=== PATIENT | male | born 1965 | race African-American/Black ===

== ENCOUNTER 2019-06-05 09:23 | Inpatient (IN) | payer OTHER ==
[2019-06-05 10:56] VITALS: BMI 23.7
--- NOTE | 2019-06-05 12:33 | HP ---
CIWA Score Nausea/Vomitin Muscle Tremors: 2 Anxiety: 2 Agitation: 3 Paroxysmal Sweats: 2 Orientation: 0-Oriented Tacttile Disturbances: 1-Very Mild Itch/Numbness Auditory Disturbances: 0-None Visual Disturbances: 0-None Headache: 2-Mild CIWA-Ar Total Score: 14 - Admission Criteria OASAS Guidelines: Admission for Medically Managed Detox: Requires at least one of the followin. CIWA greater than 12 2. Seizures within the past 24 hours 3. Delirium tremens within the past 24 hours 4. Hallucinations within the past 24 hours 5. Acute intervention needed for co occurring medical disorder 6. Acute intervention needed for co occurring psychiatric disorder 7. Severe withdrawal that cannot be handled at a lower level of care (continued vomiting, continued diarrhea, abnormal vital signs) requiring intravenous medication and/or fluids 8. Admission ROS S - [facility] Chief Complaint: i am here to stop drinking alcohol Allergies/Adverse Reactions: Allergies Allergy/AdvReac Type Severity Reaction Status Date / Time No Known Allergies Allergy Verified 06/05/19 10:42 History of Present Illness: this 53 years old male with alcohol dependence,seeking detox,withdrawal symptom, last admission [facility] in 2010, history of hypertension,type 2 dm, hiv since 1997 denied seizure syncope weight loss nicotine dependence 10 cigarette longest sobriety 10 years plan for out patient program after detox non hodgkin's lymphoma since 1997 on chemotherapy ,remission tachcardia,cadomyopathy Exam Limitations: No Limitations - Ebola screening Have you traveled outside of the country in the last 21 days: No (N) Have you had contact with anyone from an Ebola affected area: No - Review of Systems Constitutional: Loss of Appetite, Malaise, Night Sweats, Changes in sleep, Weakness EENT: reports: Nose Congestion Respiratory: reports: No Symptoms reported Cardiac: reports: No Symptoms Reported GI: reports: Nausea, Poor Appetite, Abdominal cramping : reports: No Symptoms Reported Musculoskeletal: reports: Back Pain, Muscle Pain Integumentary: reports: Dryness Neuro: reports: Headache, Tremors Endocrine: reports: No Symptoms Reported Hematology: reports: No Symptoms Reported, Other (hiv) Psychiatric: reports: No Sypmtoms Reported, Judgement Intact, Mood/Affect Appropiate, Orientated x3 Other Systems: Reviewed and Negative Patient History - Patient Medical History Hx Anemia: No Hx Asthma: No Hx Chronic Obstructive Pulmonary Disease (COPD): No Hx Cancer: No Hx Cardiac Disorders: No Hx Congestive Heart Failure: No Hx Hypertension: Yes (on med) Hx Hypercholesterolemia: No Hx Pacemaker: No HX Cerebrovascular Accident: No Hx Seizures: No Hx Dementia: No Hx Diabetes: Yes (type2 dm) Hx Gastrointestinal Disorders: No Hx Liver Disease: No Hx Genitourinary Disorders: No Hx Sexually Transmitted Disorders: No Hx Renal Disease (ESRD): No Hx Thyroid Disease: No Hx Human Immunodeficiency Virus (HIV): Yes (since 1997) Hx Hepatitis C: No Hx Depression: No Hx Suicide Attempt: No Hx Bipolar Disorder: No Hx Schizophrenia: No Other Medical History: no sucidal,no homicidal,non hodgekin's lymphoma - Patient Surgical History Other Surgical History: portacath right chest wall and removal of portacath - PPD History Previous Implant?: Yes Documented Results: Positive w/o proof PPD to be Administered?: No - Smoking Cessation Smoking history: Current every day smoker Have you smoked in the past 12 months: Yes Aproximately how many cigarettes per day: 10 Cigars Per Day: 0 Hx Chewing Tobacco Use: No Initiated information on smoking cessation: Yes 'Breaking Loose' booklet given: 06/05/19 - Substance & Tx. History Hx Alcohol Use: Yes Hx Substance Use: No Substance Use Type: Alcohol Hx Substance Use Treatment: Yes (2010) - Substances abused Alcohol Substance route: Oral Frequency: Daily Amount used: 2 PINTS OF VODKA Age of first use: 9 Date of last use: 06/05/19 Admission Physical Exam [facility] - Vital Signs Vital Signs: Vital Signs - 24 hr 06/05/19 10:34 Temperature 98.8 F Pulse Rate 103 H Respiratory 20 Rate Blood Pressure 185/112 H - Physical General Appearance: Yes: Moderate Distress, Tremorous, Irritable, Sweating, Anxious HEENTM: Yes: Normal ENT Inspection, QUITA, Pharynx Normal Respiratory: Yes: Lungs Clear, Normal Breath Sounds, No Respiratory Distress Neck: Yes: Within Normal Limits, Supple, Trachea in good position Breast: Yes: Within Normal Limits Cardiology: Yes: Within Normal Limits, Regular Rhythm, Regular Rate, S1, S2 Abdominal: Yes: Within Normal Limits, Normal Bowel Sounds, Non Tender, Flat, Soft Genitourinary: Yes: Within Normal Limits Back: Yes: Muscle Spasm Musculoskeletal: Yes: Back pain, Muscle Pain Extremities: Yes: Tremors Neurological: Yes: painting machine operator II-XII NML intact, Fully Oriented, Alert, Motor Strength 5/5 Integumentary: Yes: Dry Lymphatic: Yes: Within Normal Limits - Diagnostic (1) Alcohol dependence with uncomplicated withdrawal Current Visit: Yes Status: Acute (2) Dehydration Current Visit: Yes Status: Acute (3) Non-Hodgkin lymphoma in remission Current Visit: Yes Status: Acute (4) Nicotine dependence Current Visit: Yes Status: Acute (5) Weight loss Current Visit: Yes Status: Acute (6) DM2 (diabetes mellitus, type 2) Current Visit: Yes Status: Acute (7) HIV (human immunodeficiency virus infection) Current Visit: Yes Status: Acute (8) Cardiomyopathy Current Visit: Yes Status: Acute (9) Tachycardia Current Visit: Yes Status: Acute Cleared for Admission [facility] - Detox or Rehab [facility] Level of Care: Medically Managed Detox Regimen/Protocol: Librium Screened but not Admitted - Documentation of Visit Screened but not Admitted: No Breathalyzer - Breathalyzer Breathalyzer: 0.011 Urine Drug Screen - Test Device Lot number: [id number] Expiration date: 02/04/21 - Control Is test valid?: Yes - Results Drug screen NEGATIVE: Yes Urine drug screen results: BZO-Benzodiazepines Inpatient Rehab Admission - Rehab Decision to Admit Inpatient rehab admission?: No
[2019-06-05] MEDS ORDERED: ACETAMINOPHEN 325 MG TABLET (FP) PO PRN ×2 (12:56)
[2019-06-05] MEDS ORDERED: MAG HYDROX/AL HYDROX/SIMETH 30 ML UNIT-DOSE CUP PO PRN (12:56)
[2019-06-05] MEDS ORDERED: BISMUTH SUBSALICYLATE 524 MG/30 ML UD PO PRN (12:56)
[2019-06-05] MEDS ORDERED: IBUPROFEN 400 MG TABLET (FP) PO PRN (12:56)
[2019-06-05] MEDS ORDERED: MENTHOL/PHENOL 1 EACH UD MM PRN (12:56)
[2019-06-05] MEDS ORDERED: chlordiazePOXIDE HCL 25 MG CAPSULE PO PRN (12:56)
[2019-06-05] MEDS ORDERED: METHOCARBAMOL 500 MG TABLET PO PRN (12:56)
[2019-06-05] MEDS ORDERED: hydrOXYzine PAMOATE 25 MG CAPSULE (FP) PO PRN (12:56)
[2019-06-05] MEDS ORDERED: MAGNESIUM HYDROX 2400MG/30ML ORAL SUSPENSION 30 ML CUP PO PRN (12:56)
[2019-06-05] MEDS ORDERED: MAGNESIUM CITRATE 300 ML BOTTLE PO PRN (12:56)
[2019-06-05] MEDS: NICOTINE 21 MG/24 HOURS TOPICAL PATCH TD SCH (14:22)
[2019-06-05] MEDS: chlordiazePOXIDE HCL 25 MG CAPSULE PO SCH ×2 (17:08→22:14)
[2019-06-05] MEDS ORDERED: CARVEDILOL 6.25 MG TABLET (FP) PO SCH (22:00)
[2019-06-05] MEDS ORDERED: CARVEDILOL 3.125 MG TABLET (FP) PO SCH (22:00)
[2019-06-05] MEDS: ATORVASTATIN CA 10 MG TABLET (FP) PO SCH (22:14)
[2019-06-05] MEDS: THIAMINE HCL 100 MG TABLET (FP) PO SCH (22:14)
[2019-06-06] MEDS: chlordiazePOXIDE HCL 25 MG CAPSULE PO SCH ×4 (05:47→22:25)
[2019-06-06] MEDS: metFORMIN HCL 500 MG TABLET (FP) PO SCH (08:08)
[2019-06-06] MEDS ORDERED: APIXABAN 5 MG TABLET PO SCH (10:00)
--- NOTE | 2019-06-06 10:13 | PN ---
S CIWA - CIWA Score Nausea/Vomitin-Mild Nausea/No Vomiting Muscle Tremors: 3 Anxiety: 2 Agitation: 1-Slight > Activity Paroxysmal Sweats: 2 Orientation: 0-Oriented Tacttile Disturbances: 1-Very Mild Itch/Numbness Auditory Disturbances: 1-Very Mild Visual Disturbances: 0-None Headache: 1-Very Mild CIWA-Ar Total Score: 12 [facility]HS Progress Note (SOAP) Subjective: doing well with librium detox regimen sitting on the edge of the bed eating breakfast alert speech clearly coherently discuss frequency of eliquis casualty underwriter call [facility] at [phone] confirmed eliquis 5 mg po bid modify frequency of eliquis Objective: 06/06/19 10:14 Vital Signs Temperature 98 F 06/06/19 09:11 Pulse Rate 94 H 06/06/19 09:11 Respiratory Rate 18 06/06/19 09:11 Blood Pressure 135/78 06/06/19 09:11 O2 Sat by Pulse Oximetry (%) Laboratory Last Values POC Glucometer 113 UNITS (80-120) 06/06/19 05:50 06/06/19 10:14 lab pending Assessment: 06/06/19 10:14 alcohol withdrawal sx Plan: continue libirum detox regmen
[2019-06-06] MEDS: AMIODARONE HCL 200 MG TABLET (FP) PO SCH (10:22)
[2019-06-06] MEDS: PRENATAL VITAMINS W/ FOLIC ACID TABLET (FP) PO SCH (10:22)
[2019-06-06] MEDS: LISINOPRIL 10 MG TABLET (FP) PO SCH (10:22)
[2019-06-06] MEDS: CARVEDILOL 6.25 MG TABLET (FP) PO SCH ×2 (10:23→22:25)
[2019-06-06] MEDS: NICOTINE 21 MG/24 HOURS TOPICAL PATCH TD SCH (10:23)
[2019-06-06] MEDS: APIXABAN 5 MG TABLET PO SCH ×2 (10:58→22:25)
[2019-06-06 11:44] LABS: HEMOGLOBIN 12.5 GM/dL (11.7-16.9); MCH 30.9 pg (25.7-33.7); MEAN CELL VOLUME 93.6 fl (80-96); MEAN PLT VOLUME 9.6 fl (7.5-11.1); PLATELET COUNT 143 K/MM3 (134-434); RBC 4.06 M/mm3 (4.00-5.60); RDW 14.1 % (11.9-15.9); WHITE BLOOD COUNT 2.9 K/mm3 (4.0-10.0)
[2019-06-06 12:18] LABS: BILIRUBIN,TOTAL 0.5 mg/dL (0.2-1); BLOOD UREA NITROGEN 8.9 mg/dL (7-18); CALCIUM 9.1 mg/dL (8.5-10.1); CREATININE 0.7 mg/dL (0.55-1.3); POTASSIUM 3.5 mmol/L (3.5-5.1); TOT PROT 7.9 g/dl (6.4-8.2)
--- NOTE | 2019-06-06 13:26 | EKG ---
Test Reason : Blood Pressure : / mmHG Vent. Rate : 089 BPM Atrial Rate : 089 BPM P-R Int : 184 ms QRS Dur : 100 ms QT Int : 390 ms P-R-T Axes : 022 082 061 degrees QTc Int : 474 ms NORMAL SINUS RHYTHM VOLTAGE CRITERIA FOR LEFT VENTRICULAR HYPERTROPHY ABNORMAL ECG NO PREVIOUS ECGS AVAILABLE Confirmed by JULISSA NUNEZ MD ([id number]) on 06/06/2019 1:25:34 PM Referred By: Confirmed By:JULISSA NUNEZ MD
[2019-06-06 16:26] LABS: PH,URINE 7.5 (5.0-8.0); URINE APPEARANCE CLEAR; URINE BILIRUBIN NEGATIVE (NEGATIVE); URINE COLOR DK YELLOW; URINE GLUCOSE (UA) NEGATIVE (NEGATIVE); URINE KETONE NEGATIVE (NEGATIVE); URINE LEUK ESTERASE NEGATIVE (NEGATIVE); URINE NITRITE NEGATIVE (NEGATIVE); URINE PROTEIN TRACE (NEGATIVE)
[2019-06-06] MEDS: THIAMINE HCL 100 MG TABLET (FP) PO SCH (22:25)
[2019-06-06] MEDS: ATORVASTATIN CA 10 MG TABLET (FP) PO SCH (22:25)
[2019-06-07] MEDS: chlordiazePOXIDE HCL 25 MG CAPSULE PO SCH ×4 (05:19→22:16)
[2019-06-07] MEDS: metFORMIN HCL 500 MG TABLET (FP) PO SCH (06:29)
[2019-06-07] MEDS: APIXABAN 5 MG TABLET PO SCH ×2 (10:08→22:15)
[2019-06-07] MEDS: AMIODARONE HCL 200 MG TABLET (FP) PO SCH (10:08)
[2019-06-07] MEDS: PRENATAL VITAMINS W/ FOLIC ACID TABLET (FP) PO SCH (10:08)
[2019-06-07] MEDS: CARVEDILOL 6.25 MG TABLET (FP) PO SCH ×2 (10:09→22:15)
[2019-06-07] MEDS: LISINOPRIL 10 MG TABLET (FP) PO SCH (10:09)
[2019-06-07] MEDS: NICOTINE 21 MG/24 HOURS TOPICAL PATCH TD SCH (10:11)
--- NOTE | 2019-06-07 13:32 | PN ---
S CIWA - CIWA Score Nausea/Vomitin-Mild Nausea/No Vomiting Muscle Tremors: 1-None Visible, but [place] Anxiety: 2 Agitation: 2 Paroxysmal Sweats: No Perspiration Orientation: 0-Oriented Tacttile Disturbances: 1-Very Mild Itch/Numbness Auditory Disturbances: 0-None Visual Disturbances: 0-None Headache: 1-Very Mild CIWA-Ar Total Score: 8 [facility] Progress Note (SOAP) Subjective: alert,irritable,anxious,interrupted sleep,tremor Objective: 06/07/19 13:28 Vital Signs Temperature 96 F L 06/07/19 09:10 Pulse Rate 92 H 06/07/19 09:10 Respiratory Rate 20 06/07/19 09:10 Blood Pressure 135/91 06/07/19 09:10 O2 Sat by Pulse Oximetry (%) 06/07/19 13:28 Laboratory Last Values WBC 2.9 K/mm3 (4.0-10.0) L 06/06/19 08:50 RBC 4.06 M/mm3 (4.00-5.60) 06/06/19 08:50 Hgb 12.5 GM/dL (11.7-16.9) 06/06/19 08:50 Hct 38.0 % (35.4-49) 06/06/19 08:50 MCV 93.6 fl (80-96) 06/06/19 08:50 MCH 30.9 pg (25.7-33.7) 06/06/19 08:50 MCHC 33.0 g/dl (32.0-35.9) 06/06/19 08:50 RDW 14.1 % (11.9-15.9) 06/06/19 08:50 Plt Count 143 K/MM3 (134-434) 06/06/19 08:50 MPV 9.6 fl (7.5-11.1) 06/06/19 08:50 Sodium 140 mmol/L (136-145) 06/06/19 08:50 Potassium 3.5 mmol/L (3.5-5.1) 06/06/19 08:50 Chloride 103 mmol/L (98-107) 06/06/19 08:50 Carbon Dioxide 31 mmol/L (21-32) 06/06/19 08:50 Anion Gap 6 MMOL/L (8-16) L 06/06/19 08:50 BUN 8.9 mg/dL (7-18) 06/06/19 08:50 Creatinine 0.7 mg/dL (0.55-1.3) 06/06/19 08:50 Est GFR (CKD-EPI)AfAm 123.13 06/06/19 08:50 Est GFR (CKD-EPI)NonAf 106.24 06/06/19 08:50 POC Glucometer 140 UNITS (80-120) 06/07/19 05:22 Random Glucose 93 mg/dL (74-106) 06/06/19 08:50 Calcium 9.1 mg/dL (8.5-10.1) 06/06/19 08:50 Total Bilirubin 0.5 mg/dL (0.2-1) 06/06/19 08:50 AST 45 U/L (15-37) H 06/06/19 08:50 ALT 35 U/L (13-61) 06/06/19 08:50 Alkaline Phosphatase 71 U/L (45-117) 06/06/19 08:50 Total Protein 7.9 g/dl (6.4-8.2) 06/06/19 08:50 Albumin 3.0 g/dl (3.4-5.0) L 06/06/19 08:50 Urine Color Dk yellow 06/06/19 14:07 Urine Appearance Clear 06/06/19 14:07 Urine pH 7.5 (5.0-8.0) 06/06/19 14:07 Ur Specific [place] 1.018 (1.010-1.035) 06/06/19 14:07 Urine Protein Trace (NEGATIVE) 06/06/19 14:07 Urine Glucose (UA) Negative (NEGATIVE) 06/06/19 14:07 Urine Ketones Negative (NEGATIVE) 06/06/19 14:07 Urine Blood Negative (NEGATIVE) 06/06/19 14:07 Urine Nitrite Negative (NEGATIVE) 06/06/19 14:07 Urine Bilirubin Negative (NEGATIVE) 06/06/19 14:07 Urine Urobilinogen 1.0 mg/dL (0.2-1.0) 06/06/19 14:07 Ur Leukocyte Esterase Negative (NEGATIVE) 06/06/19 14:07 RPR Titer Nonreactive (NONREACTIVE) 06/06/19 08:50 Assessment: 06/07/19 13:30 withdrawal symptom Plan: continue detox,encourage fluid,wbc 2,900 probably due to Hiv
[2019-06-07] MEDS: ATORVASTATIN CA 10 MG TABLET (FP) PO SCH (22:15)
[2019-06-07] MEDS: THIAMINE HCL 100 MG TABLET (FP) PO SCH (22:15)
[2019-06-08] MEDS ORDERED: chlordiazePOXIDE HCL 10 MG CAPSULE PO PRN
[2019-06-08] MEDS: chlordiazePOXIDE HCL 10 MG CAPSULE PO SCH ×4 (05:53→22:12)
[2019-06-08] MEDS: metFORMIN HCL 500 MG TABLET (FP) PO SCH (06:05)
[2019-06-08] MEDS: PRENATAL VITAMINS W/ FOLIC ACID TABLET (FP) PO SCH (10:20)
[2019-06-08] MEDS: NICOTINE 21 MG/24 HOURS TOPICAL PATCH TD SCH (10:20)
[2019-06-08] MEDS: AMIODARONE HCL 200 MG TABLET (FP) PO SCH (10:21)
[2019-06-08] MEDS: APIXABAN 5 MG TABLET PO SCH ×2 (10:21→22:12)
[2019-06-08] MEDS: CARVEDILOL 6.25 MG TABLET (FP) PO SCH ×2 (10:21→22:12)
[2019-06-08] MEDS: LISINOPRIL 10 MG TABLET (FP) PO SCH (10:21)
--- NOTE | 2019-06-08 13:57 | PN ---
[facility] CIWA - CIWA Score Nausea/Vomitin-No Nausea/No Vomiting Muscle Tremors: 1-None Visible, but [place] Anxiety: 2 Agitation: 2 Paroxysmal Sweats: No Perspiration Orientation: 0-Oriented Tacttile Disturbances: 1-Very Mild Itch/Numbness Auditory Disturbances: 0-None Visual Disturbances: 0-None Headache: 1-Very Mild CIWA-Ar Total Score: 7 BHS Progress Note (SOAP) Subjective: alert,irritable,anxious,interrupted sleep Objective: 06/08/19 13:56 Vital Signs Temperature 97.3 F L 06/08/19 13:04 Pulse Rate 93 H 06/08/19 13:04 Respiratory Rate 20 06/08/19 13:04 Blood Pressure 123/86 06/08/19 13:04 O2 Sat by Pulse Oximetry (%) Assessment: 06/08/19 13:56 withdrawal symptom Plan: continue detox librium regimen
--- NOTE | 2019-06-08 14:08 | PN ---
[facility] Progress Note Note: patient would like to take his hiv medication,ordered
[2019-06-08] MEDS: BICTEGRAV/EMTRICIT/TENOFOV (BIKTARVY) 50-200-25 MG TABLET PO SCH (15:03)
[2019-06-08] MEDS: ATORVASTATIN CA 10 MG TABLET (FP) PO SCH (22:12)
[2019-06-08] MEDS: THIAMINE HCL 100 MG TABLET (FP) PO SCH (22:12)
[2019-06-08] MEDS: MELATONIN 5 MG TABLETS PO PRN (22:13)
[2019-06-09] MEDS: chlordiazePOXIDE HCL 10 MG CAPSULE PO SCH ×2 (05:28→18:57)
[2019-06-09] MEDS: metFORMIN HCL 500 MG TABLET (FP) PO SCH (06:27)
[2019-06-09] MEDS: LISINOPRIL 10 MG TABLET (FP) PO SCH (10:19)
[2019-06-09] MEDS: CARVEDILOL 6.25 MG TABLET (FP) PO SCH ×2 (10:19→22:23)
[2019-06-09] MEDS: PRENATAL VITAMINS W/ FOLIC ACID TABLET (FP) PO SCH (10:19)
[2019-06-09] MEDS: APIXABAN 5 MG TABLET PO SCH ×2 (10:19→22:23)
[2019-06-09] MEDS: BICTEGRAV/EMTRICIT/TENOFOV (BIKTARVY) 50-200-25 MG TABLET PO SCH (10:19)
[2019-06-09] MEDS: AMIODARONE HCL 200 MG TABLET (FP) PO SCH (10:20)
[2019-06-09] MEDS: NICOTINE 21 MG/24 HOURS TOPICAL PATCH TD SCH (10:22)
--- NOTE | 2019-06-09 15:23 | PN ---
S CIWA - CIWA Score Nausea/Vomitin-No Nausea/No Vomiting Muscle Tremors: None Anxiety: 0-No Anxiety, at Ease Agitation: 2 Paroxysmal Sweats: No Perspiration Orientation: 0-Oriented Tacttile Disturbances: 0-None Auditory Disturbances: 0-None Visual Disturbances: 0-None Headache: 0-None Present CIWA-Ar Total Score: 2 B[facility] Progress Note (SOAP) Subjective: Patient denies current Withdrawal / Detox symptoms and reports that he feels well overall at this time. Objective: PATIENT A & O X 3, OBSERVED AMBULATING ON DETOX UNIT UNASSISTED. IN NO ACUTE DISTRESS. 06/09/19 15:20 Vital Signs Temperature 97.4 F L 06/09/19 13:12 Pulse Rate 82 06/09/19 13:12 Respiratory Rate 18 06/09/19 13:12 Blood Pressure 132/87 06/09/19 13:12 O2 Sat by Pulse Oximetry (%) Laboratory Tests 06/05/19 06/05/19 06/06/19 13:33 16:46 05:50 WBC RBC Hgb Hct MCV MCH MCHC RDW Plt Count MPV Sodium Potassium Chloride Carbon Dioxide Anion Gap BUN Creatinine Est GFR (CKD-EPI)AfAm Est GFR (CKD-EPI)NonAf POC Glucometer 101 190 113 Random Glucose Calcium Total Bilirubin AST ALT Alkaline Phosphatase Total Protein Albumin Urine Color Urine Appearance Urine pH Ur Specific [place] Urine Protein Urine Glucose (UA) Urine Ketones Urine Blood Urine Nitrite Urine Bilirubin Urine Urobilinogen Ur Leukocyte Esterase RPR Titer 06/06/19 06/06/19 06/06/19 08:50 08:50 08:50 WBC 2.9 L RBC 4.06 Hgb 12.5 Hct 38.0 MCV 93.6 MCH 30.9 MCHC 33.0 RDW 14.1 Plt Count 143 MPV 9.6 Sodium 140 Potassium 3.5 Chloride 103 Carbon Dioxide 31 Anion Gap 6 L BUN 8.9 Creatinine 0.7 Est GFR (CKD-EPI)AfAm 123.13 Est GFR (CKD-EPI)NonAf 106.24 POC Glucometer Random Glucose 93 Calcium 9.1 Total Bilirubin 0.5 AST 45 H ALT 35 Alkaline Phosphatase 71 Total Protein 7.9 Albumin 3.0 L Urine Color Urine Appearance Urine pH Ur Specific [place] Urine Protein Urine Glucose (UA) Urine Ketones Urine Blood Urine Nitrite Urine Bilirubin Urine Urobilinogen Ur Leukocyte Esterase RPR Titer Nonreactive 06/06/19 06/06/19 06/07/19 14:07 16:54 05:22 WBC RBC Hgb Hct MCV MCH MCHC RDW Plt Count MPV Sodium Potassium Chloride Carbon Dioxide Anion Gap BUN Creatinine Est GFR (CKD-EPI)AfAm Est GFR (CKD-EPI)NonAf POC Glucometer 116 140 Random Glucose Calcium Total Bilirubin AST ALT Alkaline Phosphatase Total Protein Albumin Urine Color Dk yellow Urine Appearance Clear Urine pH 7.5 Ur Specific [place] 1.018 Urine Protein Trace Urine Glucose (UA) Negative Urine Ketones Negative Urine Blood Negative Urine Nitrite Negative Urine Bilirubin Negative Urine Urobilinogen 1.0 Ur Leukocyte Esterase Negative RPR Titer 06/07/19 06/08/19 06/08/19 16:20 05:51 16:22 WBC RBC Hgb Hct MCV MCH MCHC RDW Plt Count MPV Sodium Potassium Chloride Carbon Dioxide Anion Gap BUN Creatinine Est GFR (CKD-EPI)AfAm Est GFR (CKD-EPI)NonAf POC Glucometer 167 128 161 Random Glucose Calcium Total Bilirubin AST ALT Alkaline Phosphatase Total Protein Albumin Urine Color Urine Appearance Urine pH Ur Specific [place] Urine Protein Urine Glucose (UA) Urine Ketones Urine Blood Urine Nitrite Urine Bilirubin Urine Urobilinogen Ur Leukocyte Esterase RPR Titer 06/09/19 05:30 WBC RBC Hgb Hct MCV MCH MCHC RDW Plt Count MPV Sodium Potassium Chloride Carbon Dioxide Anion Gap BUN Creatinine Est GFR (CKD-EPI)AfAm Est GFR (CKD-EPI)NonAf POC Glucometer 129 Random Glucose Calcium Total Bilirubin AST ALT Alkaline Phosphatase Total Protein Albumin Urine Color Urine Appearance Urine pH Ur Specific [place] Urine Protein Urine Glucose (UA) Urine Ketones Urine Blood Urine Nitrite Urine Bilirubin Urine Urobilinogen Ur Leukocyte Esterase RPR Titer LABS NOTED. Assessment: 06/09/19 15:21 WITHDRAWAL SYMPTOMS. LEUKOPENIA. ELEVATED AST LEVEL. Plan: CONTINUE DETOX. PATIENT SCHEDULED FOR DISCHARGE TOMORROW.
[2019-06-09] MEDS: THIAMINE HCL 100 MG TABLET (FP) PO SCH (22:23)
[2019-06-09] MEDS: ATORVASTATIN CA 10 MG TABLET (FP) PO SCH (22:23)
[2019-06-09] MEDS: MELATONIN 5 MG TABLETS PO PRN (22:23)
[2019-06-10] MEDS ORDERED: chlordiazePOXIDE HCL 10 MG CAPSULE PO ONE (05:00)
[2019-06-10 06:45] VITALS: BP 124/81; PULSE 80; TEMP 97.9
[2019-06-10] MEDS: metFORMIN HCL 500 MG TABLET (FP) PO SCH (07:50)
--- NOTE | 2019-06-10 16:54 | DS ---
[facility] Detox Discharge Summary Admission Date: 06/05/19 Discharge Date: 06/10/19 - History Present History: Alcohol Dependence Additional Comments: PATIENT WILL ATTEND '[facility]' FOR AFTERCARE. PATIENT DECLINED OFFER OF MEDICATION PRESCRIPTION FOR HOME MEDICATION AT TIME OF DISCHARGE FROM DETOX, NOTING THAT HE CURRENTLY HAS ADEQUATE SUPPLIES OF ALL PRESCRIBED HOME MEDICATIONS AT HOME. PATIENT WAS DISCHARGED FROM DETOX UNIT IN STABLE MEDICAL CONDITION. Pertinent Past History: H.I.V., HTN, History Of Syncope, History Of Weight Loss, History Of Non-Hodgkin' s Lymphoma, Type II DM, History Of Cardiomyopathy, History Of Tachycardia, Leukopenia, Elevated AST Level, Dehydration. - Physical Exam Results Vital Signs: Vital Signs Temperature 97.9 F 06/10/19 06:00 Pulse Rate 80 06/10/19 06:00 Respiratory Rate 18 06/10/19 06:00 Blood Pressure 124/81 06/10/19 06:00 O2 Sat by Pulse Oximetry (%) Pertinent Admission Physical Exam Findings: WITHDRAWAL SYMPTOMS. Laboratory Tests 06/05/19 06/05/19 06/06/19 13:33 16:46 05:50 WBC RBC Hgb Hct MCV MCH MCHC RDW Plt Count MPV Sodium Potassium Chloride Carbon Dioxide Anion Gap BUN Creatinine Est GFR (CKD-EPI)AfAm Est GFR (CKD-EPI)NonAf POC Glucometer 101 190 113 Random Glucose Calcium Total Bilirubin AST ALT Alkaline Phosphatase Total Protein Albumin Urine Color Urine Appearance Urine pH Ur Specific [place] Urine Protein Urine Glucose (UA) Urine Ketones Urine Blood Urine Nitrite Urine Bilirubin Urine Urobilinogen Ur Leukocyte Esterase RPR Titer 06/06/19 06/06/19 06/06/19 08:50 08:50 08:50 WBC 2.9 L RBC 4.06 Hgb 12.5 Hct 38.0 MCV 93.6 MCH 30.9 MCHC 33.0 RDW 14.1 Plt Count 143 MPV 9.6 Sodium 140 Potassium 3.5 Chloride 103 Carbon Dioxide 31 Anion Gap 6 L BUN 8.9 Creatinine 0.7 Est GFR (CKD-EPI)AfAm 123.13 Est GFR (CKD-EPI)NonAf 106.24 POC Glucometer Random Glucose 93 Calcium 9.1 Total Bilirubin 0.5 AST 45 H ALT 35 Alkaline Phosphatase 71 Total Protein 7.9 Albumin 3.0 L Urine Color Urine Appearance Urine pH Ur Specific [place] Urine Protein Urine Glucose (UA) Urine Ketones Urine Blood Urine Nitrite Urine Bilirubin Urine Urobilinogen Ur Leukocyte Esterase RPR Titer Nonreactive 06/06/19 06/06/19 06/07/19 14:07 16:54 05:22 WBC RBC Hgb Hct MCV MCH MCHC RDW Plt Count MPV Sodium Potassium Chloride Carbon Dioxide Anion Gap BUN Creatinine Est GFR (CKD-EPI)AfAm Est GFR (CKD-EPI)NonAf POC Glucometer 116 140 Random Glucose Calcium Total Bilirubin AST ALT Alkaline Phosphatase Total Protein Albumin Urine Color Dk yellow Urine Appearance Clear Urine pH 7.5 Ur Specific [place] 1.018 Urine Protein Trace Urine Glucose (UA) Negative Urine Ketones Negative Urine Blood Negative Urine Nitrite Negative Urine Bilirubin Negative Urine Urobilinogen 1.0 Ur Leukocyte Esterase Negative RPR Titer 06/07/19 06/08/19 06/08/19 16:20 05:51 16:22 WBC RBC Hgb Hct MCV MCH MCHC RDW Plt Count MPV Sodium Potassium Chloride Carbon Dioxide Anion Gap BUN Creatinine Est GFR (CKD-EPI)AfAm Est GFR (CKD-EPI)NonAf POC Glucometer 167 128 161 Random Glucose Calcium Total Bilirubin AST ALT Alkaline Phosphatase Total Protein Albumin Urine Color Urine Appearance Urine pH Ur Specific [place] Urine Protein Urine Glucose (UA) Urine Ketones Urine Blood Urine Nitrite Urine Bilirubin Urine Urobilinogen Ur Leukocyte Esterase RPR Titer 06/09/19 06/09/19 06/10/19 05:30 16:26 05:33 WBC RBC Hgb Hct MCV MCH MCHC RDW Plt Count MPV Sodium Potassium Chloride Carbon Dioxide Anion Gap BUN Creatinine Est GFR (CKD-EPI)AfAm Est GFR (CKD-EPI)NonAf POC Glucometer 129 146 166 Random Glucose Calcium Total Bilirubin AST ALT Alkaline Phosphatase Total Protein Albumin Urine Color Urine Appearance Urine pH Ur Specific [place] Urine Protein Urine Glucose (UA) Urine Ketones Urine Blood Urine Nitrite Urine Bilirubin Urine Urobilinogen Ur Leukocyte Esterase RPR Titer LABS NOTED. - Treatment Hospital Course: Detox Protocol Followed, Detoxed Safely, Responded well, Discharged Condition Good Patient has Accepted a Rehab Referral to: PATIENT TO ATTEND [facility] FOR AFTERCARE. - Medication Discharge Medications: Ambulatory Orders Amiodarone HCl 200 mg PO DAILY 06/05/19 Bictegrav/Emtricit/Tenofov Ala [Biktarvy 50-200-25 mg Tablet] 1 each PO DAILY Carvedilol [Coreg -] 6.25 mg PO BID 06/05/19 Lisinopril [Zestril] 10 mg PO DAILY 06/05/19 Metformin HCl [Glucophage] 500 mg PO DAILY 06/05/19 Simvastatin 20 mg PO DAILY 06/05/19 Apixaban [Eliquis -] 5 mg PO BID 06/06/19 - Diagnosis (1) Alcohol dependence with uncomplicated withdrawal Status: Acute (2) Cardiomyopathy Status: Acute Qualifiers: Cardiomyopathy type: unspecified Qualified Code(s): I42.9 - Cardiomyopathy , unspecified (3) DM2 (diabetes mellitus, type 2) Status: Acute Qualifiers: Diabetes mellitus intermission coordinator insulin use: without intermission coordinator use Diabetes mellitus complication status: with other specified complication Qualified Code (s): E11.69 - Type 2 diabetes mellitus with other specified complication (4) Dehydration Status: Acute (5) Elevated aspartate aminotransferase level Status: Acute (6) HIV (human immunodeficiency virus infection) Status: Acute Qualifiers: HIV symptom status: unspecified Qualified Code(s): B20 - Human immunodeficiency virus [HIV] disease (7) Leukopenia Status: Acute Qualifiers: Leukopenia type: unspecified Qualified Code(s): D72.819 - Decreased white blood cell count, unspecified (8) Nicotine dependence Status: Acute Qualifiers: Nicotine product type: cigarettes Substance use status: uncomplicated Qualified Code(s): F17.210 - Nicotine dependence, cigarettes, uncomplicated (9) Non-Hodgkin lymphoma in remission Status: Chronic (10) Tachycardia Status: Chronic (11) Weight loss Status: Acute - AMA Did Patient Leave Against Medical Advice: No [facility] CIWA - CIWA Score Nausea/Vomitin-No Nausea/No Vomiting Muscle Tremors: None Anxiety: 0-No Anxiety, at Ease Agitation: 0-Normal Activity Paroxysmal Sweats: No Perspiration Orientation: 0-Oriented Tacttile Disturbances: 0-None Auditory Disturbances: 0-None Visual Disturbances: 0-None Headache: 0-None Present CIWA-Ar Total Score: 0
== END 2019-06-10 08:43 | disposition home or self-care (01) | DRG 897 ==
LOC: YASAS 09:23 → Y3N 13:08
PROVIDERS: ADMIT Surgery; ATTEND Surgery
PROC: HZ2ZZZZ Detoxification Services for Substance Abuse Treatment (ICD-10-PCS; principal; 2019-06-05)
DX: F10.230 Alcohol dependence with withdrawal, uncomplicated (principal); I42.9 Cardiomyopathy, unspecified; F17.210 Nicotine dependence, cigarettes, uncomplicated; Z21 Asymptomatic human immunodeficiency virus [HIV] infection status; I10 Essential (primary) hypertension; E86.0 Dehydration; E11.9 Type 2 diabetes mellitus without complications; Z79.84 Long term (current) use of oral hypoglycemic drugs; D72.819 Decreased white blood cell count, unspecified; R00.0 Tachycardia, unspecified; R94.5 Abnormal results of liver function studies; R63.4 Abnormal weight loss; Z68.23 Body mass index [BMI] 23.0-23.9, adult; Z85.72 Personal history of non-Hodgkin lymphomas
CPT/HCPCS: 36415; 71045-TC-FY; 80053; 81003; 82962; 85027; 86593; 93005; 93010